=== PATIENT | male | born 1955 | race African-American/Black ===

== ENCOUNTER 2019-03-03 13:14 | Observation (INO) | payer BC, OTHER ==
[2019-03-03 13:55] LABS: Protime INR 0.99
--- NOTE | 2019-03-03 14:23 | RAD REPORT ---
EXAM DESCRIPTION: RAD - Chest Single View - 03/03/2019 1:41 pm CLINICAL HISTORY: Chest pain COMPARISON: None. TECHNIQUE: AP portable chest image was obtained 1336 hours . FINDINGS: Lungs are clear. Heart and vasculature are normal. No measurable pleural effusion and no p neumothorax. No acute bony abnormality seen. No acute aortic findings suspected. IMPRESSION: No acute cardiopulmonary process.
[2019-03-03 14:41] LABS: Albumin 4.1 g/dL (3.4-5.0); Bilirubin Direct 0.3 mg/dL (0-0.2); Magnesium 2.2 mg/dL (1.8-2.4); Potassium 4.3 mmol/L (3.5-5.1); Protein, Total 8.2 g/dL (6.4-8.2); Troponin (Emerg Dept Use Only) 0.08 ng/mL (0.0-0.045)
[2019-03-03 14:46] LABS: Absolute Lymphocytes (CBC) 1.8 K/uL (0.7-4.9); Absolute Monocytes 0.7 K/uL (0.1-1.3); Eosinophils % 3.1 % (0-4.4); Hematocrit 42.2 % (39.6-49.0); Lymphocytes % 31.5 % (15.3-44.8); RBC Red Blood Cell Count 4.89 M/uL (4.33-5.43)
--- NOTE | 2019-03-03 15:01 | EDPHYS ---
Physician Documentation [facility] Name: Jerry Sarkar Age: 63 yrs Sex: Male : 1955 Arrival Date: 03/03/2019 Time: 13:16 Bed 8 Private MD: ED Physician Breezy Baires HPI: 03/03 13:37 This 63 yrs old Black Male presents to ER via Ambulatory with complaints of Heart ps1 Racing, Dizziness. 13:37 patient states that he is a gym financial coach/ teacher and felt lightheaded, had tunnel vision, ps1 and felt as though he was going to pass out. He had his blood pressure checked and was normal. He continued on for a couple of hours. Symptoms improved but just felt fatigued. He states that he may have had a mild heart attack remotely, was referred to a adjunct nursing faculty in [facility] and had a negative LHC. He is due for a follow up but has since moved from the area. He denies chest pain, BRIELLE, or pain in his legs. . Historical: - Allergies: 13:23 No Known Allergies; tw2 - Home Meds: 13:23 lisinopril-hydrochlorothiazide 20-12.5 mg oral tab 1 tab once daily [Active]; tw2 carvedilol 3.125 mg oral tab 1 tab daily [Active]; spironolactone 25 mg Oral tab 1 tab once daily [Active]; aspirin 81 mg Oral chew 1 tab once daily [Active]; atorvastatin 20 mg oral tab 1 tab once daily [Active]; - PMHx: 13:23 Hypertension; tw2 - PSHx: 13:23 Appendectomy; tw2 13:24 heart cath; tw2 - Immunization history:: Adult Immunizations. - Social history:: Smoking status: . - Ebola Screening: : Patient denies travel to an Ebola-affected area in the 21 days before illness onset. ROS: 13:37 Constitutional: Negative for fever, chills, and weight loss, Eyes: Negative for injury, ps1 pain, redness, and discharge, Cardiovascular: Negative for chest pain, palpitations, and edema, Respiratory: Negative for shortness of breath, cough, wheezing, and pleuritic chest pain, Abdomen/GI: Negative for abdominal pain, nausea, vomiting, diarrhea, and constipation, MS/Extremity: Negative for injury and deformity, Skin: Negative for injury, rash, and discoloration, Psych: Negative for depression, anxiety, suicide ideation, homicidal ideation, and hallucinations. 13:37 Neuro: Positive for near syncope. Exam: 13:37 Constitutional: This is a well developed, well nourished patient who is awake, alert, ps1 and in no acute distress. Head/Face: Normocephalic, atraumatic. Eyes: Pupils equal round and reactive to light, extra-ocular motions intact. Lids and lashes normal. Conjunctiva and sclera are non-icteric and not injected. Chest/axilla: Normal chest wall appearance and motion. Nontender with no deformity. No lesions are appreciated. Cardiovascular: Regular rate and rhythm. No gallops, murmurs, or rubs. Normal PMI, no JVD. No pulse deficits. Respiratory: Lungs have equal breath sounds bilaterally, clear to auscultation and percussion. No rales, rhonchi or wheezes noted. No increased work of breathing, no retractions or nasal flaring. Abdomen/GI: Soft, non-tender, with normal bowel sounds. No distension or tympany. No guarding or rebound. No evidence of tenderness throughout. Skin: Warm, dry with normal turgor. Normal color with no rashes, no lesions, and no evidence of cellulitis. MS/ Extremity: Pulses equal, no cyanosis. Neurovascular intact. Full, normal range of motion. Neuro: Awake and alert, GCS 15, oriented to person, place, time, and situation. Cranial nerves II-XII grossly intact. Sensory grossly intact. Psych: Awake, alert, with orientation to person, place and time. Behavior, mood, and affect are within normal limits. Vital Signs: 13:21 BP 123 / 76; Pulse 56; Resp 17; Temp 98.6(TE); Pulse Ox 99% on R/A; Weight 97.52 kg tw2 (R); Height 6 ft. 0 in. (182.88 cm) (R); Pain 0/10; 14:45 BP 130 / 90; Pulse 65; Resp 15; Pulse Ox 98% on R/A; hb 16:00 BP 138 / 95; Pulse 66; Resp 16; Pulse Ox 99% on R/A; Pain 0/10; hb 13:21 Body Mass Index 29.16 (97.52 kg, 182.88 cm) tw2 MDM: 13:36 Patient medically screened. ps1 03/03 13:23 Order name: CBC with Diff ps1 03/03 13:23 Order name: LFT's; Complete Time: 14:55 ps1 03/03 13:23 Order name: Magnesium; Complete Time: 14:55 ps1 03/03 13:23 Order name: NT PRO-BNP; Complete Time: 14:55 ps1 03/03 13:23 Order name: PT-INR; Complete Time: 14:18 ps1 03/03 13:23 Order name: Troponin (emerg Dept Use Only); Complete Time: 14:55 ps1 03/03 13:23 Order name: XRAY Chest (1 view); Complete Time: 14:55 ps1 03/03 13:23 Order name: EKG; Complete Time: 13:24 ps1 03/03 13:23 Order name: Cardiac monitoring; Complete Time: 13:48 ps1 03/03 13:23 Order name: EKG - Nurse/Tech; Complete Time: 13:32 ps1 03/03 13:23 Order name: IV Saline Lock; Complete Time: 15:56 ps1 03/03 13:23 Order name: Labs collected and sent; Complete Time: 13:48 ps1 03/03 13:23 Order name: CMP; Complete Time: 14:55 ps1 03/03 15:56 Order name: Diet Regular; Complete Time: 15:56 hb 03/03 13:23 Order name: O2 Per Protocol; Complete Time: 13:32 ps1 03/03 13:23 Order name: O2 Sat Monitoring; Complete Time: 13:32 ps1 EC:48 Rate is 58 beats/min. Rhythm is regular. QRS Hull is Normal. TN interval is normal. QRS ps1 interval is normal. Q waves are Old. T waves are Inverted in leads V4, V5, V6. No ST changes noted. Clinical impression: NSR w/ Non-specific ST/T Changes. Interpreted by me. Administered Medications: No medications were administered Disposition: 03/03/19 15:00 Hospitalization ordered by Di Wren for Observation. Preliminary diagnosis are near syncope, elevated troponin. - Bed requested for Telemetry/MedSurg (observation). - Status is Observation. hb - Condition is Stable. - Problem is new. - Symptoms have improved. UTI on Admission? No Signatures: Dispatcher [employer] EDYumi Henry RN RN dw Debra Merida, RN RN hb Nicolle Cazares RN RN tw2 Breezy Baires MD MD ps1 Corrections: (The following items were deleted from the chart) 15:57 15:00 Hospitalization Ordered by Di Wren MD for Observation. Preliminary diagnosis dw is near syncope; elevated troponin. Bed requested for Telemetry/MedSurg (observation). Status is Observation. Condition is Stable. Problem is new. Symptoms have improved. UTI on Admission? No. ps1 17:09 15:57 03/03/2019 15:00 Hospitalization Ordered by Di Wren MD for Observation. hb Preliminary diagnosis is near syncope; elevated troponin. Bed requested for Telemetry/MedSurg (observation). Status is Observation. Condition is Stable. Problem is new. Symptoms have improved. UTI on Admission? No. dw
--- NOTE | 2019-03-03 15:01 | ER ---
Nurse's Notes [facility] Name: Jerry Sarkar Age: 63 yrs Sex: Male : 1955 Arrival Date: 03/03/2019 Time: 13:16 Bed 8 Private MD: Diagnosis: near syncope;elevated troponin Presentation: 03/03 13:18 Presenting complaint: Patient states: about 6 am this morning i was at school, tw2 everything got hazy and i started feeling funny, i went to training room, and they took my blood pressure, and it was fine, i feel like my heart was fluttering and i just dont feel right, i feel just out of kilter mauro weak and drained. Transition of care: patient was not received from another setting of care. Onset of symptoms was March 03, 2019. Risk Assessment: Do you want to hurt yourself or someone else? Patient reports no desire to harm self or others. Initial Sepsis Screen: Does the patient meet any 2 criteria? No. Patient's initial sepsis screen is negative. Does the patient have a suspected source of infection? No. Patient's initial sepsis screen is negative. Care prior to arrival: None. 13:18 Method Of Arrival: Ambulatory tw2 13:18 Acuity: ERAN 3 tw2 Historical: - Allergies: 13:23 No Known Allergies; tw2 - Home Meds: 13:23 lisinopril-hydrochlorothiazide 20-12.5 mg oral tab 1 tab once daily [Active]; tw2 carvedilol 3.125 mg oral tab 1 tab daily [Active]; spironolactone 25 mg Oral tab 1 tab once daily [Active]; aspirin 81 mg Oral chew 1 tab once daily [Active]; atorvastatin 20 mg oral tab 1 tab once daily [Active]; - PMHx: 13:23 Hypertension; tw2 - PSHx: 13:23 Appendectomy; tw2 13:24 heart cath; tw2 - Immunization history:: Adult Immunizations. - Social history:: Smoking status: . - Ebola Screening: : Patient denies travel to an Ebola-affected area in the 21 days before illness onset. Screenin:51 Abuse screen: Denies threats or abuse. Denies injuries from another. Nutritional hb screening: No deficits noted. Tuberculosis screening: No symptoms or risk factors identified. Fall Risk None identified. Assessment: 13:30 General: Appears in no apparent distress. Behavior is calm, cooperative. Pain: Denies hb pain. Neuro: Level of Consciousness is awake, alert, obeys commands, Oriented to person, place, time, situation, Reports dizziness. Cardiovascular: Heart tones S1 S2 present Capillary refill < 3 seconds Patient's skin is warm and dry. Rhythm is regular. Respiratory: Airway is patent Respiratory effort is even, unlabored, Respiratory pattern is regular, symmetrical, Breath sounds are clear bilaterally. GI: No signs and/or symptoms were reported involving the gastrointestinal system. : No signs and/or symptoms were reported regarding the genitourinary system. EENT: No signs and/or symptoms were reported regarding the EENT system. Derm: Skin is intact, is healthy with good turgor. Musculoskeletal: No signs and/or symptoms reported regarding the musculoskeletal system. 14:30 Reassessment: Patient appears in no apparent distress at this time. Patient and/or hb family updated on plan of care and expected duration. Pain level reassessed. Patient is alert, oriented x 3, equal unlabored respirations, skin warm/dry/pink. 15:30 Reassessment: Patient appears in no apparent distress at this time. Patient and/or hb family updated on plan of care and expected duration. Pain level reassessed. Patient is alert, oriented x 3, equal unlabored respirations, skin warm/dry/pink. ADMISSION ORDERED, AWAITING ROOM ASSIGNMENT AT THIS TIME. FAMILY REMAINS AT BEDSIDE. 16:30 Reassessment: Patient appears in no apparent distress at this time. Patient and/or hb family updated on plan of care and expected duration. Pain level reassessed. Patient is alert, oriented x 3, equal unlabored respirations, skin warm/dry/pink. Vital Signs: 13:21 BP 123 / 76; Pulse 56; Resp 17; Temp 98.6(TE); Pulse Ox 99% on R/A; Weight 97.52 kg tw2 (R); Height 6 ft. 0 in. (182.88 cm) (R); Pain 0/10; 14:45 BP 130 / 90; Pulse 65; Resp 15; Pulse Ox 98% on R/A; hb 16:00 BP 138 / 95; Pulse 66; Resp 16; Pulse Ox 99% on R/A; Pain 0/10; hb 13:21 Body Mass Index 29.16 (97.52 kg, 182.88 cm) tw2 ED Course: 13:16 Patient arrived in ED. mr 13:17 Breezy Baires MD is Attending Physician. ps1 13:21 Triage completed. tw2 13:24 Arm band placed on. tw2 13:32 EKG done, by it support technician. reviewed by Breezy Baires MD. at1 13:38 X-ray completed. Portable x-ray completed in exam room. Patient tolerated procedure mh1 well. 13:39 XRAY Chest (1 view) In Process Unspecified. EDMS 13:48 Missed attempt(s): 20 gauge in left antecubital area. Bleeding controlled, band aid hb applied, catheter tip intact. 13:51 Patient has correct armband on for positive identification. Placed in gown. Bed in low hb position. Call light in reach. Side rails up X 1. vp software engineering on. Pulse ox on. NIBP on. 13:51 Missed attempt(s): 20 gauge in right antecubital area. Bleeding controlled, band aid hb applied, catheter tip intact. 14:12 Inserted saline lock: 20 gauge in right antecubital area, using aseptic technique. hb 14:59 Di Wren MD is Hospitalizing Provider. ps1 15:55 Debra Merida, RN is Primary Nurse. hb 16:47 No provider procedures requiring assistance completed. Patient admitted, IV remains in hb place. Administered Medications: No medications were administered Outcome: 15:00 Decision to Hospitalize by Provider. ps1 16:47 Admitted to Tele accompanied by tech, family with patient, via wheelchair, room 431, hb with chart, Report called to QUINTIN SANDOVAL 16:47 Condition: stable 16:47 Instructed on the need for admit, Demonstrated understanding of instructions. 17:09 Patient left the ED. hb Signatures: Dispatcher [employer] EDSD Bonita Braga Martha mh1 [place], medical physics professor EKG Tat1 Debra Merida, RN RN Nicolle Camilo, LORI RN tw2 Breezy Baires MD MD ps1
[2019-03-03] MEDS ORDERED: NITROGLYCERIN 0.4 MG/TAB SL PRN (17:01)
[2019-03-03] MEDS ORDERED: ACETAMINOPHEN 500 MG TAB PO PRN (17:01)
[2019-03-03] MEDS ORDERED: MORPHINE 2 MG/ML SYR IV PRN (17:01)
[2019-03-03] MEDS: CARVEDILOL 3.125 MG TAB PO SCH (17:40)
[2019-03-03] MEDS: ENOXAPARIN 40 MG/0.4 ML SQ SCH (17:45)
[2019-03-03] MEDS: NA CHLORIDE 0.9% 1,000 ML IV SCH (18:37)
[2019-03-03 19:42] LABS: Blood Morphology Comment NOT SEEN (NOT SEEN); Platelet Estimate DECR
[2019-03-03] MEDS ORDERED: ATORVASTATIN 40 MG TAB PO SCH (21:00)
--- NOTE | 2019-03-03 21:39 | EKG ---
Test Date: 2019-03-03 Test Time: 13:27:30 Air Bag Curer: [employer] MEASUREMENT RESULTS: Intervals: Rate: 58 MI: 210 QRSD: 102 QT: 438 QTc: 429 Daphne: P: 60 MI: 210 QRS: 16 T: 239 INTERPRETIVE STATEMENTS: Sinus bradycardia with 1st degree AV block Septal infarct, age undetermined T wave abnormality, consider lateral ischemia Abnormal ECG No previous ECG available for comparison Electronically Signed On 03-03-19 21:38:22 CDT by Jabier Escamilla
--- NOTE | 2019-03-04 00:46 | HP ---
Date of Admission: 03/03/2019 Code Status: Full. Chief Complaint: Near syncopal episode, elevated cardiac enzymes. History Of Present Illness: The patient is a 63-year-old male with past medical history of hypertens ion, obstructive sleep apnea, uses CPAP at home, comes in with episode of near syncope on the day of admission. The patient was at the gym today, had some decreased vision, some blurry vision as well a s lightheadedness, did not complain specifically of any chest pain. The patient did not have any epi sode of loss of consciousness, however, had his blood pressure checked, which was in the 120 systolic . However, due to his symptoms which were constant, moderate, and progressively worsening, he decide d to come in to the emergency department for further evaluation. He denies any fevers, chills. No i ll contacts recently. No cough. The patient's workup initially revealed creatinine of 1.39. His tr oponin level was elevated at 0.08. His chest x-ray showed no acute cardiopulmonary process. The pat ient had some nonspecific changes on his EKG. The patient was then referred for admission. Past Medical History: Hypertension, obstructive sleep apnea. Past Surgical History: Appendectomy, knee surgery on the right, heart catheterization in 2017, which showed normal coronaries. Allergies: NO KNOWN DRUG ALLERGIES. Medications: List reviewed. Social History: The patient denies any tobacco use, alcohol use, or illicit drug use. 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 Family History: The patient has an aunt who of NC at the age of 60. Sister as well as h is father also have heart disease. Hypertension also runs in the family. Review of Systems: An 11-point system reviewed, negative except as per HPI. Physical Examination: Vital Signs: Blood pressure 123/76, pulse 56, respirations 17, temperature 98.6, O2 99% on room air. General: Awake, alert, oriented x3, ill-appearing male. HEENT: Normocephalic, atraumatic. PERRLA. EOMI. Dry mucous membranes. Oropharynx is clear. Conj unctivae are anicteric. Neck: Supple. No JVD. Trachea midline. CV: S1, S2. Regular rate and rhythm. Peripheral pulses present. Respiratory: Moving air well bilaterally. No wheezing or stridor. No use of accessory muscles. Gastrointestinal: Abdomen is soft, nontender, nondistended. Positive bowel sounds. No guarding or rigidity. Extremities: No clubbing, cyanosis, or edema. No calf tenderness. Neuro: Cranial nerves 2-12 intact grossly. No focal neurological deficits. Speech is normal. Stre ngth is 5/5, left upper and lower extremity and right upper extremity. Left lower extremity range of motion is limited. Strength is symmetric to the left side. Skin: No rashes. Normal skin turgor. Psych: Mood is okay. Affect is full. Insight and judgment are good. Laboratory Data: INR 0.99. Sodium 141, potassium 4.3, chloride 106, CO2 28, BUN 20, creatinine 1.39 , glucose 84, calcium 9.4, magnesium 2.2. Troponin 0.08. BNP 159. H and H 13.9 and 42.2. Chest x- ray shows no acute cardiopulmonary process. Assessment And Plan: A 63-year-old male with: 1.Near syncopal episode, unclear etiology. We will obtain a carotid artery ultrasound. Place on [facility] telemetry. The patient does have some PVCs and abnormal rhythm on EKG. We will obtain echocar diogram. Cardiology has been consulted. 2.Elevated troponin level, possible NSTEMI. We will repeat cardiac enzymes. Start on chest pain gu idelines with beta-marcelino, statin, and aspirin. 3.Essential hypertension. The patient's blood pressure usually in the 110-120 systolic, currently i n the 140s-150s. We will resume home medications and monitor. 4.Obstructive sleep apnea. We will continue with the patient's CPAP from home. 5.Acute versus acute on chronic kidney injury. Creatinine level is 1.39. No baseline available. W e will start on IV fluids and monitor. Admit the patient to med-surg, place as observation. Consult Cardiology. /FELIX Voice ID: [id number]
--- NOTE | 2019-03-04 02:59 | CON ---
Date of Consultation: 03/03/2019 Reason For Consultation: Palpitation and dizziness. History Of Present Illness: Mr. Sarkar is a 63-year-old black male with history of what sounds like m ild congestive heart failure and hypertension. Normal heart catheterization in the last two years or so. At one point, he was told that he had an ejection fraction of 45% and after his catheterization he was placed on atorvastatin, lisinopril, carvedilol, and spironolactone. He sees physicians in [facility] and [place] and [place], not here locally. 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 To me, he denied any syncope and he denied any chest pain what soever. He is feeling better right now. He had denied any fever or chills recently. He said that h is spironolactone dose has just been doubled. Past Medical History: Otherwise stated earlier. Review of Systems: Negative. Social History: Negative. Family History: Noncontributory. Medication: Stated earlier. Family History: Noncontributory. Physical Examination: General: Mr. Sarkar appeared to be in no acute distress. Vital Signs: Stable. When he first came in, his heart rate was 53, his blood pressure was 102 systo lic at home. It is better here. He is in normal sinus rhythm. HEENT: Negative. Neck: Supple without any bruit, lymphadenopathy, JVD, or thyromegaly. Chest: Clear to auscultation and percussion. Cardiac: Revealed a regular rhythm and rate with S4 gallops. Abdomen: Benign. EXTREMITIES: Revealed no clubbing, cyanosis, or edema. Diagnostic Studies: His EKG showed LVH with sinus bradycardia. Chest x-ray was negative. Creatinin e is 1.39. His troponin is 0.08. Impression And Plan: Lightheadedness, dizziness, palpitations. Certainly could be secondary to john ycardia and maybe hypotension secondary to his polypharmacy. He has a 2D echocardiogram pending to e valuate elevated troponin but I do not think this is related to an acute coronary syndrome. I agree with a carotid Doppler to make sure that he does not have any carotid stenosis. We will see what the echocardiogram shows prior to making final decisions. He has had a normal heart catheterization in the past. I think if everything is normal, I would certainly cut down his spironolactone dose or dis continue the spironolactone completely, especially if he has a normal ejection fraction. I will sugg est considering his cardiomyopathy in the past that he has an event monitor placed as an outpatient. We will see what his echo and carotid shows first prior to making any final decisions. I do not thi nk there is any need to do a stress test or a heart catheterization based on the information we have right now. Case was discussed with Dr. Wren. RACHEL/FELIX Voice ID: [id number] Report ID: [id number]
[2019-03-04 04:19] LABS: Absolute Lymphocytes (CBC) 1.7 K/uL (0.7-4.9); Absolute Monocytes 0.9 K/uL (0.1-1.3); Absolute Neutrophil 2.2 K/uL (1.8-8.0); Basophils % 0.4 % (0-1.3); Eosinophils % 4.4 % (0-4.4); Hematocrit 37.3 % (39.6-49.0); Lymphocytes % 33.3 % (15.3-44.8); Monocytes % 17.6 % (3.3-12.3); RBC Red Blood Cell Count 4.33 M/uL (4.33-5.43)
[2019-03-04] MEDS: CARVEDILOL 3.125 MG TAB PO SCH (05:29)
[2019-03-04] MEDS: NA CHLORIDE 0.9% 1,000 ML IV SCH (07:16)
[2019-03-04] MEDS ORDERED: ASPIRIN EC 81 MG TAB PO SCH (09:00)
[2019-03-04] MEDS ORDERED: LISINOPRIL 10 MG TAB PO SCH (09:00)
--- NOTE | 2019-03-04 09:00 | RAD REPORT ---
EXAM DESCRIPTION: US - CP - 03/04/2019 8:48 am CLINICAL HISTORY: Syncope COMPARISON: None. TECHNIQUE: Real-time sonographic evaluation of both carotid systems was performed. Ward scale and Do ppler interrogation were performed with waveform tracing bilaterally. FINDINGS: Normal high resistance waveforms are noted in both external carotid arteries. The common c arotid arteries and internal carotid arteries show normal low resistance waveforms. No significant plaque formation is seen. Peak systolic and end diastolic velocity values and the ICA/ CCA ratios are in the non-hemodynamically significant range. Antegrade flow seen in both vertebral arteries. Velocity values and ratios were recorded and are retained in the patient's imaging records. IMPRESSION: No significant atherosclerotic changes noted. No evidence of a hemodynamically significant stenosis.
[2019-03-04] MEDS: ENOXAPARIN 40 MG/0.4 ML SQ SCH (09:13)
--- NOTE | 2019-03-04 13:30 | ECHO ---
HEIGHT: 6 ft 0 in WEIGHT: 214 lb 8 oz DATE OF STUDY: 03/04/[address]: Di Wren MD 2-DIMENSIONAL: YES M.MODE: YES DOPPLER: YES COLOR FLOW: YES TDS: PORTABLE: DEFINITY: BUBBLE STUDY: DIAGNOSIS: SYNCOPE CARDIAC HISTORY: CATHERIZATION: YES SURGERY: NO PROSTHETIC VALVE: NO PACEMAKER: NO MEASUREMENTS (cm) DIASTOLIC (NORMALS) SYSTOLIC (NORMALS) IVSd 0.9 (0.6-1.2) LA Diam 4.8 (1.9-4.0) LVEF 30-35% LVIDd 5.5 (3.5-5.7) LVIDs 5.1 (2.0-3.5) %FS 6% LVPWd 0.8 (0.6-1.2) Ao Diam 3.1 (2.0-3.7) 2 DIMENSIONAL ASSESSMENT: RIGHT ATRIUM: NORMAL LEFT ATRIUM: DILATED RIGHT VENTRICLE: NORMAL LEFT VENTRICLE: NORMAL TRICUSPID VALVE: NORMAL MITRAL VALVE: NORMAL PULMONIC VALVE: NORMAL AORTIC VALVE: NORMAL PERICARDIAL EFFUSION: NONE AORTIC ROOT: NORMAL LEFT VENTRICULAR WALL MOTION: GLOBAL HYPOKINESIS DOPPLER/COLOR FLOW: MILD MITRAL REGURGITATION. COMMENTS: DEPRESSED LEFT VENTRICULAR EJECTION FRACTION. DILATED LEFT ATRIUM. MILD MITRAL REGURGITATION. TECHNOLOGIST: HUGO MCKEON
--- NOTE | 2019-03-05 13:19 | DS ---
Date of Discharge: 03/04/2019 Loop Tacker: Dr. Escamilla with Cardiology. Discharge Diagnoses: 1.Near syncopal episode. 2.Elevated troponin level, acute coronary syndrome ruled out. 3.Essential hypertension. 4.Dilated cardiomyopathy. 5.Obstructive sleep apnea. 6.Acute versus ketpt-je-emdopnd kidney injury stage 2. 7.Hypertriglyceridemia. Hospital Course: The patient is a 63-year-old male with past medical history of hypertension with pr evious heart catheterization 2 years ago, who comes in with a near syncopal episode. The patient has dizziness and had some blurry vision. The patient did not complain of any chest pain. His troponin level was elevated at 0.08, creatinine was 1.39. Looking back at previous records, his creatinine l evel from 2012 was also 1.36. The patient was admitted to the hospital for further workup. Carotid artery ultrasound was done, which was negative. Echocardiogram showed EF of 30%-35%, dilated left at rium, mild mitral regurgitation. The patient was also seen by Dr. Escamilla, who felt that this may be related to some of his blood pressure medications. He recommended decreasing the dose of the spiron olactone. The patient will be taken off his hydrochlorothiazide. He will continue his aspirin, stat in, beta-marcelino and Aldactone dose will be cut down to 12.5 daily. The patient will need followup w jeremiah Escamilla for event monitor placement. Dr. Escamilla did not recommend any stress test or heart catheterization. He did verify his previous records from [place] and the patient had normal cor onaries. The patient was doing well. He did not have any further dizziness. Blood pressure improve d. He was counseled regarding his triglycerides and to continue his statin medication. He was then able to ambulate well without any symptoms. No further episodes of near syncope. He was then cleare d for discharge and was sent home in a stable condition. Activity: As tolerated. Medications: As per medication reconciliation list. Followup: Follow up with primary care physician in 2-3 days. Follow up with inspector fabric, Dr. Bindu isabel in 1 week. Return to ER for worsening condition. Diet: Heart healthy. Activity: As tolerated. Physical Examination: General: Awake, alert, oriented x3. No acute distress. CV: S1, S2. No murmurs. Respiratory: Moving air well bilaterally. Abdomen: Abdomen is soft, nontender, nondistended. Positive bowel sounds. Extremities: No clubbing, cyanosis, edema. Neurologic: Nonfocal. SA/MODL Voice ID: [id number] Report ID: [id number]
== END 2019-03-04 15:09 | disposition home or self-care (01) ==
LOC: ER 13:14 → ERHOLD 15:34 → 4TH 16:42
PROVIDERS: ADMIT Family Medicine; ATTEND Family Medicine
DX: R55 Syncope and collapse (principal); I10 Essential (primary) hypertension; G47.33 Obstructive sleep apnea (adult) (pediatric); R79.89 Other specified abnormal findings of blood chemistry; I42.9 Cardiomyopathy, unspecified; E78.1 Pure hyperglyceridemia; R94.4 Abnormal results of kidney function studies
CPT/HCPCS: 36415; 71045; 80048; 80053; 80061; 80076; 83735; 83880; 84484; 85025; 85610; 93005; 93306; 93880; 97162; 99285; G0378; J1650; J7030